=== PATIENT | male | born 1955 | race Caucasian/White ===

== ENCOUNTER 2016-12-04 10:59 | Emergency (ER) | payer OTHER ==
--- NOTE | 2016-12-04 11:37 | ED ---
General Adult HPI - General Chief complaint: Extremity Injury, Lower Stated complaint: Poss blood clot in leg-sent by Time Seen by Provider: 12/04/16 11:22 Source: patient, RN notes reviewed Mode of arrival: wheelchair Limitations: no limitations - History of Present Illness Initial comments: 61-year-old male presents to the emergency Department chief complaint of swelling to the right calf. He states the last month or so he's been having on- and-off pain and swelling to the right calf. Patient states that he then had a fall on Saturday and since she's noticed some increased pain Increased in pain and chest discomfort. He was concerned because of his discomfort so he thought that he should be evaluated. He denies any pain when the leg at rest. He tries to step on it flexes his foot he has more pain. He was concerned due to the swelling so they were sent here to have a blood clot ruled out.Patient denies any recent fever, chills, shortness of breath, chest pain, back pain, abdominal pain, nausea vomiting, numbness or tingling, dysuria or hematuria, constipation or diarrhea, headaches or visual changes, or any other current symptoms. - Related Data Home Medications Medication Instructions Recorded Confirmed Acetaminophen-Codeine 300-30mg 1 tab PO ONCE PRN 12/04/16 12/04/16 [Tylenol #3] Allergies Allergy/AdvReac Type Severity Reaction Status Date / Time No Known Allergies Allergy Verified 12/04/16 11:39 Review of Systems ROS Statement: Those systems with pertinent positive or pertinent negative responses have been documented in the HPI. ROS Other: All systems not noted in ROS Statement are negative. Past Medical History Past Medical History: No Reported History History of Any Multi-Drug Resistant Organisms: None Reported Additional Past Surgical History / Comment(s): carpal tunnel Past Psychological History: No Psychological Hx Reported Smoking Status: Current every day smoker Past Alcohol Use History: None Reported Past Drug Use History: None Reported General Exam - General Exam Comments Initial Comments: General: The patient is awake and alert, in no distress, and does not appear acutely ill. Neck: The neck is supple, there is no tenderness. Cardiovascular: There is a regular rate and rhythm. No murmur, rub or gallop is appreciated. Respiratory: Lungs are clear to auscultation, respirations are non-labored, breath sounds are equal. No wheezes, stridor, rales, or rhonchi. Musculoskeletal: Sensation intact with 2+ pulses throughout the right lower extremity. Patient has a positive Homans sign. Fund motion of right ankle and right knee. No skin trauma Noted.[id number]. Neurological: CN II-XII intact, There are no obvious motor or sensory deficits. Coordination appears grossly intact. Speech is normal. Skin: Skin is warm and dry and no rashes or lesions are noted. Psychiatric: Normal mood and affect. Limitations: no limitations Course Vital Signs 12/04/16 11:13 Temperature 97.5 F L Pulse Rate 103 H Respiratory 18 Rate Blood Pressure 116/63 O2 Sat by Pulse 97 Oximetry Procedures - Orthopedic Splinting/Casting Injury #1 Side: right Lower Extremity Injury Location: lower leg Lower Extremity Immobilizer: Grabiel wrap Medical Decision Making - Medical Decision Making 61-year-old male presents for right calf pain. This time patient's ultrasound results have been reviewed. This time with the patient's history of falling hematoma is the most consistent with the story. At this time we did discuss concerns. We discussed return for hours and follow-up. Patient has good pulses sensation is intact in the area is not tense touch. This and we did discuss return parameters and follow-up. Patient stated he understood and all his questions have been answered. He will be discharged. - Radiology Data Radiology results: report reviewed, image reviewed Disposition Clinical Impression: Hematoma of right lower extremity Disposition: HOME SELF-CARE Condition: Stable Instructions: Hematoma (ED) Additional Instructions: Please use medication as discussed. Please follow up with family doctor if symptoms have not improved over the next two days. Please return to the emergency room if your symptoms increase or worsen or for any other concerns. Referrals: Siri Sexton DO [Primary Care Provider] - 1-2 days Time of Disposition: 12:47
--- NOTE | 2016-12-04 12:32 | US ---
EXAMINATION TYPE: US venous doppler duplex LE RT DATE OF EXAM: 12/04/2016 12:18 PM COMPARISON: NONE CLINICAL HISTORY: Pain. Intermittent right calf pain, swelling and spasms x 1 month, recent fall on r ight knee SIDE PERFORMED: Right TECHNIQUE: The lower extremity deep venous system is examined utilizing real time linear array sonog jyotsna with graded compression, doppler sonography and color-flow sonography. VESSELS IMAGED: External Iliac Vein (EIV) Common Femoral Vein Deep Femoral Vein Greater Saphenous Vein * Femoral Vein Popliteal Vein Small Saphenous Vein * Proximal Calf Veins (* superficial vessels) Grayscale, color doppler, spectral doppler imaging performed of the deep veins of the lower extremity . There is normal flow, compressibility, vascular waveforms. Right Leg: Appears negative for DVT, scanned right calf area of pain and swellin.7 x 1.8 x 3.7c m hypoechoic complex area Left Leg: IMPRESSION: 1. No evidence for DVT. 2. Collection as noted above may reflect a complex ganglion cyst versus hematoma. Correlate clinicall y.
--- NOTE | 2016-12-04 12:37 | XR ---
EXAMINATION TYPE: XR tibia fibula RT DATE OF EXAM: 12/04/2016 CLINICAL HISTORY: pain TECHNIQUE: AP and lateral images of the right tibia and fibula are obtained. COMPARISON: None. FINDINGS: There is no acute fracture/dislocation evident. The joint spaces appear within normal alves its. The overlying soft tissue appears unremarkable. IMPRESSION: There is no acute fracture or dislocation seen. ICD 10 NO FRACTURE, INITIAL EVALUATION
[2016-12-04 13:06] VITALS: BP 121/72; PULSE 70; RESP 16; TEMP 97.9
== END 2016-12-04 13:00 | disposition home or self-care (01) ==
LOC: EC 10:59
DX: S80.11XA Contusion of right lower leg, initial encounter (principal); R07.89 Other chest pain; F17.200 Nicotine dependence, unspecified, uncomplicated; W19.XXXA Unspecified fall, initial encounter
CPT/HCPCS: 99284

== ENCOUNTER → 2019-02-24 | Outpatient (CLI) | payer OTHER ==
--- NOTE | 2019-02-25 06:57 | CTL ---
EXAMINATION TYPE: CT Low Dose Lung DATE OF EXAM ORDERED: 02/24/2019 HISTORY: . Lung cancer screening CT DLP: [address] CTDI: 1.84 mGy Automated exposure control for dose reduction was used. SCREENING VISIT: Initial COMPARISON: None TECHNIQUE: Low dose computed tomography scan was performed through the chest at 1 mm thick sections a nd reconstructed images in the coronal plane at [address] DIAGNOSTIC QUALITY: Limited, but interpretable FINDINGS: LUNG NODULES: Present, detailed below: There is a 0.2 cm peripheral nodule within the left midlung. Series 5 image 134 There is a 0.2 cm peripheral based nodule right midlung. Series 5 image 140. There is a 0.2 cm pleural-based nodule along the right lower lobe laterally. Series 5 image 218. There is linear thickening along the major fissure near the right diaphragm. LUNGS: COPD: Severity: None Fibrosis: Severity: None Lymph nodes: None Other findings: None RIGHT PLEURAL SPACE: Effusion: None Calcification: None Thickening: None Pneumothorax: None LEFT PLEURAL SPACE: Effusion: None Calcification: None Thickening: None Pneumothorax: None HEART: Heart Size: Normal Coronary calcification: Mild Pericardial effusion: None OTHER FINDINGS: Upper abdomen: Normal Bony thorax: Normal Supraclavicular region: Normal Other: Ascending thoracic aorta at the level the main pulmonary artery measures 3.5 cm. The main pul monary artery at the bifurcation measures 1.9 cm. IMPRESSION: 1. Small bilateral peripheral nodules FOLLOW UP CT CHEST RECOMMENDATION: Follow-up low-dose CT chest [address] LUNG RAD: 2
== END | disposition home or self-care (01) ==
LOC: RADCTMAIN 16:46
PROVIDERS: ATTEND Family Medicine
DX: Z12.2 Encounter for screening for malignant neoplasm of respiratory organs (principal); F17.210 Nicotine dependence, cigarettes, uncomplicated; R91.8 Other nonspecific abnormal finding of lung field

== ENCOUNTER → 2021-11-16 | Outpatient (CLI) | payer OTHER ==
--- NOTE | 2021-11-16 09:17 | CTL ---
EXAMINATION TYPE: CT Low Dose Lung DATE OF EXAM ORDERED: 11/16/2021 HISTORY: Long-term tobacco use. Lung cancer screening CT DLP: [address] CTDI: 1.76 mGy Automated exposure control for dose reduction was used. SCREENING VISIT: First after baseline COMPARISON: Prior study 2019. TECHNIQUE: Low dose computed tomography scan was performed through the chest at 1 mm thick sections a nd reconstructed images in multiple planes at 1 mm and [address] DIAGNOSTIC QUALITY: Satisfactory FINDINGS: LUNG NODULES: Present, detailed below: Scattered tiny micronodules redemonstrated. No new or enlarging greater than 4 mm pulmonary nodules. LUNGS: COPD: Severity: Moderate Fibrosis: Severity: None Lymph nodes: None Other findings: Non- RIGHT PLEURAL SPACE: Effusion: None Calcification: None Thickening: None Pneumothorax: None LEFT PLEURAL SPACE: Effusion: None Calcification: None Thickening: None Pneumothorax: None HEART: Heart Size: Normal Coronary Calcification: Small Pericardial Effusion: None OTHER FINDINGS: Upper abdomen: Incidental 2.8 cm benign-appearing thin-walled cyst upper pole level right kidney medi ally axial image 65. Bony thorax: None Supraclavicular region: None Other: None IMPRESSION: No significant new or enlarging greater than [address] LUNG RAD AND CT CHEST RECOMMENDATION: Lung-Rad 2 Benign Appearance or Behavior: Continue annual sc reening with LDCT in 12 months. S Modifier (other clinically significant findings): None
== END | disposition home or self-care (01) ==
LOC: RADCTMAIN 08:01
PROVIDERS: ATTEND Family Medicine
DX: Z12.2 Encounter for screening for malignant neoplasm of respiratory organs (principal); Z87.891 Personal history of nicotine dependence
CPT/HCPCS: 71271

== ENCOUNTER → 2021-11-24 | Outpatient (CLI) | payer OTHER ==
--- NOTE | 2021-11-24 21:03 | MR ---
EXAMINATION TYPE: MR lumbar spine wo con DATE OF EXAM: 11/24/2021 COMPARISON: Low dose chest CT 11/16/2021 HISTORY: Low back pain that radiates down left leg for 6 weeks. TECHNIQUE: Multiplanar, multisequence images of the lumbar spine were acquired without IV contrast. There is a lytic mixed sclerotic appearance to the T12 vertebral body, central portion of the vertebr al body shows loss of normal bone, there is abnormal low signal on T1-weighted sequences, increased s ignal in T2-weighted sequences extending to the disc spaces at the central aspect of the vertebral shaheen dy. No evident retropulsion. Some loss of height centrally is present of approximately 50% similar to prior CT. 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 Cortical cysts associated with the right kidney L1-L2: Normal disc appearance without desiccation. No herniation, protrusion or disc bulging. No ca nal stenosis is present. Foramina are patent bilaterally. L2-L3: There is some loss of disc height signal consistent with disc desiccation and degenerative dis c disease, mild posterior disc bulge causes slight anterior mass effect on the thecal sac. Circumfere ntial extension endplate disc complex encroaches minimally on the inferior aspect of the foramina L3-L4: Loss of disc signal is present, there is mild posterior disc bulge causing slight anterior mas s effect on the thecal sac, circumferential extension endplate disc complex encroaches on the foramin a greater on the left than on the right, lateral disc herniation noted. There is some hypertrophic ch sinan of the ligamentum flavum causing posterior lateral mass effect on the thecal sac. L4-L5: Some loss of disc signal is present, circumferential extension endplate disc complex encroache s minimally on the inferior aspect of the foramina. Posterior disc bulge causes slight anterior mass effect on the thecal sac. There is some facet arthropathy change. L5-S1: Normal disc appearance without desiccation. No herniation, protrusion or disc bulging. No ca nal stenosis is present. Foramina are patent bilaterally. Lumbar segments are intact. No paraspinal masses are identified. Conus medullaris has a normal appe arance. No significant spinal stenosis. IMPRESSION: Indeterminate sclerotic appearance with mixed lytic characteristic at T12, bone scan may be of benefi t. Degenerative disc disease, facet arthropathy, some foraminal encroachment as described.
== END | disposition home or self-care (01) ==
LOC: RADMRIMAIN 17:23
PROVIDERS: ATTEND Family Medicine
DX: M54.9 Dorsalgia, unspecified (principal); M54.30 Sciatica, unspecified side
CPT/HCPCS: 72148

== ENCOUNTER → 2022-01-19 | Outpatient (CLI) | payer OTHER ==
--- NOTE | 2022-01-19 14:25 | NM ---
EXAMINATION TYPE: NM bone scan whole body DATE OF EXAM: 01/19/2022 COMPARISON: MRI 11/24/2021, CT scan chest 11/16/2021 HISTORY: Back pain Delayed whole-body scanning was performed following the injection of 22.4 mCi Tc 99m MDP. Images acq uired 3 hours post injection. FINDINGS: There is intense abnormal uptake involving the thoracic spine and thoracolumbar junction. Focal inten se area seen at the level of T12 corresponds to the MRI abnormality noted on prior study. Abnormal uptake involving the shoulders likely on the basis of arthritic change. Abnormal uptake involving the mandible likely the basis of periodontal disease. IMPRESSION: 1. Intense abnormal uptake throughout the thoracic spine likely due to an endplate compression fractu res and degenerative disc disease noted by recent CT scan chest. More focal intense area corresponds to T12 abnormality seen by previous MRI could be on the basis of a fracture. Pathologic fracture, met astasis or osteomyelitis also an differential diagnosis
== END | disposition home or self-care (01) ==
LOC: RADNMMAIN 10:29
PROVIDERS: ATTEND Physical Medicine & Rehabilitation
DX: M47.817 Spondylosis without myelopathy or radiculopathy, lumbosacral region (principal); R93.7 Abnormal findings on diagnostic imaging of other parts of musculoskeletal system
CPT/HCPCS: 78306; A9503

== ENCOUNTER → 2022-01-26 | Outpatient (CLI) | payer OTHER ==
[2022-01-27 02:43] LABS: Protein, Total 6.5 g/dL (6.2-8.2)
[2022-02-01 10:06] LABS: Albumin 3.74 g/dL (3.80-4.90); Gamma Globulin 0.9 g/dL (0.70-1.50)
== END | disposition home or self-care (01) ==
LOC: LABWHC1 15:17
PROVIDERS: ATTEND Family Medicine
DX: C90.00 Multiple myeloma not having achieved remission (principal)
CPT/HCPCS: 36415; 84165; 84166

== ENCOUNTER → 2024-05-08 | Outpatient (CLI) | payer OTHER ==
--- NOTE | 2024-05-08 17:52 | CTL ---
EXAMINATION TYPE: CT Low Dose Lung DATE OF EXAM: 05/08/2024 4:32 PM COMPARISON: 04/10/2023. CLINICAL INDICATION: Male, 69 years old with history of Z12.2 ENCNTR SCREEN FOR MALIGNANT NEOPLASM OF RESP; Lung screening for nicotine dependence of 2ppd x30 years, quit smoking Mar 2023, hx of COPD. P t also stated there was an abnormal lung finding in left lung from previous exam., history of tobacco use. TECHNIQUE: Multiple axial non-contrast scans were obtained from approximately the lung apices through the upper abdomen. Coronal and sagittal reformatted images were obtained. Low dose technique was uti lized. MIP were created on a separate workstation and submitted for review. CT DLP: 115.5 mGycm, Automated exposure control for dose reduction was used. CT Contrast: Contrast used: None Oral contrast used: None FINDINGS: Lack of intravenous contrast and low dose technique limits the evaluation of the vascular and soft ti ssue structures. LUNGS: Improved aeration of the lungs in today's exam. No evidence of pulmonary fibrosis. No evidence of focal consolidation, pneumothorax or pleural effusion. Centrilobular and paraseptal emphysema terry nges in the lung apices with large bullae noted on the right. Bilateral pulmonary hilum lymph nodes are not as well appreciated possibly due to lack of IV contrast . Nodules: RUL: None. RML: None. RLL: 6 mm series 5 image 45, not seen on prior there is consolidation changes in this location on prior.. MATILDA: None. LLL: None. AIRWAY: Patent and unremarkable. HEART: Size within normal limits. Mild coronary artery calcifications present. MEDIASTINUM: No gross evidence of adenopathy. VASCULATURE: No aortic aneurysm. MUSCULOSKELETAL: Moderate disc degeneration changes are present throughout the thoracolumbar spine. M ultilevel endplate Schmorl nodes noted throughout the spine. SOFT TISSUES/LYMPH NODES: Unremarkable. LOWER NECK: No significant findings. UPPER ABDOMEN: Partially visualized right renal cyst measuring 36 mm, no follow-up recommended. IMPRESSION: 1. 6 mm new right lower lobe medial pulmonary nodule which have been seen in area of consolidation on prior imaging 04/10/2023. Six-month follow-up recommended for this lesion 2. Improved aeration of the lungs with resolution of prior bibasilar airspace consolidation. 3. Severe paraseptal and centrilobular emphysema. CT LUNG RAD AND CT CHEST RECOMMENDATION: Lung-Rad 3 Probably Benign: 6 month follow-up LDCT. S Modifier (other clinically significant findings): None Recommend smoking cessation (if current smoker), or continuation of smoking cessation (if prior smoke r). Annual screening for lung cancer with low-dose computed tomography is recommended in adults ages 55 to 77 years who have a 30 pack-year smoking history and currently smoke or have quit within the pa st 15 years. Screening should be discontinued once a person has not smoked for 15 years or develops a health problem that substantially limits life expectancy or the ability or willingness to have curat sheree lung surgery. Lung rads 2021 [email or web address], , 05/08/2024 5:49 PM
== END | disposition home or self-care (01) ==
LOC: RADCTMAIN 15:09
PROVIDERS: ATTEND Internal Medicine Critical Care Medicine
DX: Z12.2 Encounter for screening for malignant neoplasm of respiratory organs (principal); J43.2 Centrilobular emphysema; R91.1 Solitary pulmonary nodule; Z87.891 Personal history of nicotine dependence
CPT/HCPCS: 71271